=== PATIENT | male | born 1965 | race Caucasian/White ===

== ENCOUNTER 2016-06-13 10:18 | Emergency (ER) | payer MEDICARE, OTHER ==
[~2016-06-13] VITALS: Ht 177.8 cm; Wt 97.7 kg
[~2016-06-13 10:18] MED LIST: AMITRIPTYLINE H25 M1; AMITRIPTYLINE H25 M1 PO; ATIVAN 0.50.5 MG/TAB PO; ATIVAN 1MG T1 MG/TAB PO; ATIVAN1 MG PO; AVINZA30 MG PO; AVINZA45 MG PO; BENADRYL IV; CELEBREX 200MG200 MG PO; CELEBREX100 MG PO; CEPHALEXIN500 M1 PO; CLEOCIN HCL300 MG PO; CLINDAMYCIN IV; CYCLOBENZAPRINE10 MG PO; DESYREL 50MG50 MG PO; DOXYCYCLINE 10100 MG PO; ELAVIL25 MG PO; GLUCOPHAGE500 MG/TAB PO; INDERAL 20MG20 MG PO; LEVITRA PO; LEVITRA20 MG PO; LIPITOR20 MG PO; LIPITOR40 MG PO; LUNESTA3 MG PO; METHOCARBAMOL500 MG PO; MINIPRESS 1M1 MG/CAP; MINIPRESS1 MG PO; MINIPRESS2 MG PO; MORPHINE; MS CONTIN 330 MG/TAB PO; MSIR15 MG PO; NARCAN .4MG0.4 MG/ML IV; NEXIUM 40MG40 MG PEG; No medications; OMEGA 3 PO; PERCOCET 325 MG1 TA2 PO; PERCOCET 325 MG1 TAB PO; PHENERGAN IV; PRILOSEC 20MG20 MG PO; PROTONIX I40 MG/VIAL IV; RISPERDAL 1M1 MG/TAB PO; RISPERDAL1 MG PO; TEMAZEPAM PO; TOPAMAX50 MG PO; TORADOL IV; TRAZADONE HYDR100 MG PO; TRAZODO50 MG PO; VITAMIN D PO; VITAMIN D1000 IU PO; ZESTRIL 10MG10 MG PO; ZOCOR 40MG40 MG PO; ZOLOFT 100MG100 MG; ZOLOFT100 MG PO; ZOLOFT50 MG PO; [UNRECOGNIZED DRUG - OTHER] IV; [UNRECOGNIZED DRUG - OTHER] PO
[2016-06-13 10:21] VITALS: BP 137/99; PULSE 84; TEMP 96
[2016-06-13 11:06] LABS: PH 5 (5-8); SQUAMOUS EPITHELIAL 0-2 /hpf; URINE APPEARANCE Hazy; URINE BACTERIA None Seen /hpf; URINE BILIRUBIN Negative (NEGATIVE); URINE BLOOD 2+ (NEGATIVE); URINE COLOR Yellow; URINE GLUCOSE Negative (NEGATIVE); URINE KETONE Negative (NEGATIVE); URINE UROBILINOGEN Negative (NEGATIVE); URINE WBC 0-2 /hpf
[2016-06-13 12:59] LABS: HEMOGLOBIN 16.9 g/dl (13.5-18.0); MEAN CELL VOLUME 88 fl (80.0-100.0); MEAN CORPUSCULAR HEMOGLOBIN 30 pg (27.0-31.0); MEAN CORPUSCULAR HGB CONC 34 g/dl (33.0-37.0); PLATELET COUNT 293 K/mm3 (130-400); RED BLOOD COUNT 5.69 M/mm3 (4.20-5.60); WHITE BLOOD COUNT 13.5 K/mm3 (4.8-10.8)
[2016-06-13 13:01] LABS: CREATININE, serum 1.05 mg/dL (0.66-1.25); POTASSIUM 4.2 mmol/L (3.4-5.0)
[2016-06-13 13:02] LABS: ADD PATHOLOGY DIFF REVIEW NO
[2016-06-13 13:34] LABS: BAND 1 % (0-10); EOSINOPHIL 4 % (0-4); METAMYELOCYTE 1 % (0-0); NEUTROPHILS 45 % (42.0-75.2); TOTAL CELLS COUNTED 100
[2016-06-13 13:35] LABS: HYPOCHROMIA 1+
[2016-06-13] MEDS ORDERED: NORCO 325 MG-51 TAB PO (14:06)
[2016-06-13] MEDS ORDERED: CIPRO 500MG TA500 MG PO (14:06)
== END 2016-06-13 14:20 | disposition home or self-care (01) ==
LOC: COL.ER 10:18
PROVIDERS: Emergency Medicine
DX: N50.812 Left testicular pain (principal); R31.9 Hematuria, unspecified; E11.9 Type 2 diabetes mellitus without complications; F17.210 Nicotine dependence, cigarettes, uncomplicated
CPT/HCPCS: J7030; Q9967

== ENCOUNTER 2017-09-27 09:30 | Outpatient (RCR) | payer OTHER ==
[~2017-09-27 09:30] MED LIST changes: +CIPRO 500MG TA500 MG PO; +NORCO 325 MG-51 TAB PO
== END 2017-10-29 | disposition home or self-care (01) ==
LOC: WSPT
DX: M51.16 Intervertebral disc disorders with radiculopathy, lumbar region (principal)

== ENCOUNTER 2018-02-09 10:30 | Outpatient (RCR) | payer OTHER | END 2018-03-20 | disposition home or self-care (01) | LOC: WSPT | DX: M51.37 Other intervertebral disc degeneration, lumbosacral region (principal); M48.07 Spinal stenosis, lumbosacral region; Z79.84 Long term (current) use of oral hypoglycemic drugs; Z79.899 Other long term (current) drug therapy ==

== ENCOUNTER 2018-05-28 09:45 | Outpatient (RCR) | payer OTHER | END 2018-07-08 | disposition still patient (30) | LOC: WSPT | DX: M51.37 Other intervertebral disc degeneration, lumbosacral region (principal); Z79.84 Long term (current) use of oral hypoglycemic drugs; Z79.899 Other long term (current) drug therapy ==

== ENCOUNTER 2018-08-21 20:29 | Emergency (ER) | payer OTHER ==
[~2018-08-21] VITALS: Ht 177.8 cm; Wt 96.4 kg
[2018-08-21 20:46] VITALS: BP 138/88; TEMP 99.8
[2018-08-21 21:50] VITALS: PULSE 88
== END 2018-08-21 21:52 | disposition home or self-care (01) ==
LOC: COL.ER 20:29
DX: S51.832A Puncture wound without foreign body of left forearm, initial encounter (principal); I10 Essential (primary) hypertension; E11.9 Type 2 diabetes mellitus without complications; K21.9 Gastro-esophageal reflux disease without esophagitis; F43.10 Post-traumatic stress disorder, unspecified; F17.210 Nicotine dependence, cigarettes, uncomplicated; Z79.84 Long term (current) use of oral hypoglycemic drugs; W26.8XXA Contact with other sharp object(s), not elsewhere classified, initial encounter; Y92.828 Other wilderness area as the place of occurrence of the external cause

== ENCOUNTER 2018-09-27 08:30 | Outpatient (RCR) | payer OTHER | END 2018-10-21 | disposition still patient (30) | LOC: WSPT | DX: M51.37 Other intervertebral disc degeneration, lumbosacral region (principal) ==

== ENCOUNTER 2020-03-18 13:32 | Day surgery (SDC) | payer MEDICARE, OTHER ==
[~2020-03-18] VITALS: Ht 177.8 cm; Wt 110.0 kg
[2020-03-18 11:10] VITALS: BP 119/74; PULSE 74; TEMP 98.2
[2020-03-18 12:29] VITALS: BP 118/73; PULSE 67; TEMP 98.2
--- NOTE | 2020-03-18 12:29 | NUR ---
PATIENT BROUGHT BACK TO [facility] [place] V[place] CART FROM [place]. RN AT BEDSIDE FOR REPORT. VP OF [employer]LOBAL MARKETING AT BEDSIDE FOR REPORT. VITAL SIGNS STABLE. IV INFUSING. PATIENT DENIES PAIN OR NAUSEA. REQUESTING SPRITE AT THIS TIME. MD AT BEDSIDE TO SPEAK WITH PATIENT ABOUT PROCEDURE. CALL GOMEZ WITHIN REACH, WILL CONTINUE TO MONITOR.
[2020-03-18 12:45] VITALS: BP 118/83; PULSE 65
--- NOTE | 2020-03-18 12:45 | NUR ---
PATIENT TOLERATING DRINK WITHOUT DIFFICULTY. STATES HE DOESNT WANT ANYTHING TO EAT AT THIS TIME. DENIES NAUSEA. MD AT BEDSIDE SPEAKING WITH ON THE PHONE. WILL MONITOR.
[2020-03-18 13:00] VITALS: BP 108/62; PULSE 68
--- NOTE | 2020-03-18 13:00 | NUR ---
PATIENT STATES HE FEELS READY TO GO HOME AT THIS TIME. PATIENTS CALLED, ASKED TO TELEVISION REPAIRER AT FRONT DOOR. IV REMOVED, TOLERATED WITHOUT DIFFICULTY. PATIENT TO GET DRESSED AT THIS TIME.
--- NOTE | 2020-03-18 13:10 | NUR ---
DISCHARGE INSTRUCTIONS REVIEWED WITH PATIENT ALL QUESTIONS ANSWERED. BROUGHT DOWN TO LOBBY VIA WHEEL CHAIR. AT FRONT TO DRIVE PATIENT HOME. BOOT IN PLACE TO LEFT FOOT. DR. PLATT NUMBER PROVIDED. ALL BELONGINGS IN HAND.
[~2020-03-18 13:32] MED LIST changes: +PRINIVIL40 MG PO
== END 2020-03-18 13:34 | disposition home or self-care (01) ==
LOC: SDCO 13:32
DX: M77.32 Calcaneal spur, left foot (principal); I10 Essential (primary) hypertension; E11.9 Type 2 diabetes mellitus without complications; G47.33 Obstructive sleep apnea (adult) (pediatric); J43.1 Panlobular emphysema; F43.10 Post-traumatic stress disorder, unspecified; Z90.49 Acquired absence of other specified parts of digestive tract; Z88.0 Allergy status to penicillin; Z79.84 Long term (current) use of oral hypoglycemic drugs; Z79.899 Other long term (current) drug therapy; E78.5 Hyperlipidemia, unspecified; K21.9 Gastro-esophageal reflux disease without esophagitis; Z87.891 Personal history of nicotine dependence; Z20.828 Contact with and (suspected) exposure to other viral communicable diseases; F32.9 Major depressive disorder, single episode, unspecified
CPT/HCPCS: J0690; J2250; J2704; J3010; J3301

== ENCOUNTER 2020-08-11 08:30 | Outpatient (RCR) | payer MEDICARE, OTHER | END 2020-09-27 | disposition still patient (30) | LOC: WSPT | DX: M54.5 Low back pain (principal) ==

== ENCOUNTER 2020-12-15 14:00 | Emergency (ER) | payer MEDICARE, OTHER ==
[~2020-12-15] VITALS: Ht 177.8 cm; Wt 104.5 kg
[2020-12-15 14:42] LABS: HEMATOCRIT 45.6 % (42.0-52.0); HEMOGLOBIN 14.8 g/dl (13.5-18.0); MEAN CELL VOLUME 90 fl (80.0-100.0); MEAN CORPUSCULAR HEMOGLOBIN 29 pg (27.0-31.0); MEAN CORPUSCULAR HGB CONC 33 g/dl (33.0-37.0); MEAN PLATELET VOLUME 10.8 fl (7.4-10.4); PLATELET COUNT 323 K/mm3 (130-400); RED BLOOD COUNT 5.08 M/mm3 (4.20-5.60)
[2020-12-15 14:58] LABS: ALANINE AMINOTRANSFERASE 57 U/L (4-49); ALBUMIN 4.4 gm/dL (3.5-5.0); ALKALINE PHOSPHATASE 55 U/L (50-136); ANION GAP 10 mmol/L (7-16); AST,SGOT 42 U/L (15-37); BILIRUBIN,TOTAL 0.4 mg/dL (0.0-1.0); BLOOD UREA NITROGEN 16 mg/dL (9-20); CALCIUM 9.3 mg/dL (8.4-10.2); CARBON DIOXIDE 24 mmol/L (22-30); CHLORIDE 104 mmol/L (98-107); GLUCOSE 171 mg/dL (74-106); LIPASE 84 U/L (23-300); POTASSIUM 3.9 mmol/L (3.4-5.0); SODIUM 138 mmol/L (137-145); TOTAL PROTEIN 7.6 gm/dL (6.4-8.2)
[2020-12-15 15:00] LABS: C-REACTIVE PROTEIN < 0.5 mg/dL (0.0-0.9)
[2020-12-15 15:14] LABS: TROPONIN-I < 0.012 ng/mL (0.000-0.035)
[2020-12-15 15:57] LABS: EOSINOPHIL 4 % (0-4); LYMPHOCYTE 56 % (20.0-51.0); NEUTROPHILS 32 % (42.0-75.2); PLATELET ESTIMATE NORMAL (NORMAL)
[2020-12-15 15:58] LABS: TARGET CELLS 1+
[2020-12-15 15:59] LABS: POIKILOCYTOSIS 1+
[2020-12-15 16:00] LABS: HYPOCHROMIA 1+
[2020-12-15 16:02] LABS: HOWELL-JOLLY BODIES 1+
[2020-12-15 16:04] LABS: SCHISTOCYTES 1+
[2020-12-15 17:51] VITALS: BP 130/82; PULSE 57; TEMP 97.6
[2020-12-16 08:12] LABS: PATHOLOGY DIFF REVIEW OK +
== END 2020-12-15 17:42 | disposition home or self-care (01) ==
LOC: COL.ER 14:00
PROVIDERS: Nurse Practitioner Primary Care
DX: R07.89 Other chest pain (principal); I10 Essential (primary) hypertension; I25.10 Atherosclerotic heart disease of native coronary artery without angina pectoris; E78.5 Hyperlipidemia, unspecified; Z79.899 Other long term (current) drug therapy

== ENCOUNTER 2021-11-03 12:00 | Outpatient (RCR) | payer OTHER ==
[2021-10-25 10:25] VITALS: BP 142/77; PULSE 64; TEMP 98.7
[2021-10-26 10:15] VITALS: BP 112/56; PULSE 68; TEMP 97.1
[~2021-11-03] VITALS: Ht 177.8 cm; Wt 109.3 kg
[~2021-11-03 12:00] MED LIST changes: +SYNTHROID0.2 MG/TAB PO; +VITAMIN D31000 IU PO
== END 2021-11-07 ==
LOC: COL.RAD
DX: C73 Malignant neoplasm of thyroid gland (principal)
CPT/HCPCS: A9517; J3240

== ENCOUNTER → 2021-11-18 | Outpatient (CLI) | payer OTHER, MEDICARE | LOC: COL.RAD 07:56 | DX: R59.0 Localized enlarged lymph nodes (principal); Z85.850 Personal history of malignant neoplasm of thyroid | CPT/HCPCS: Q9967 ==

== ENCOUNTER 2023-06-29 13:00 | Outpatient (RCR) | payer OTHER, MEDICARE | END 2023-07-09 | disposition home or self-care (01) | LOC: WSPT | DX: M25.561 Pain in right knee (principal) ==